=== PATIENT | female | born 1990 | race Caucasian/White ===

== ENCOUNTER 2017-09-07 08:14 | Emergency (ER) | payer BC, OTHER ==
--- NOTE | 2017-09-07 09:20 | EDM.PDOC ---
ED HPI GENERAL MEDICAL PROBLEM - General Chief Complaint: Upper Extremity Injury/Pain Stated Complaint: RIGHT HAND INJURY Time Seen by Provider: 09/07/17 08:44 Source of Information: Reports: Patient History Limitations: Reports: No Limitations - History of Present Illness INITIAL COMMENTS - FREE TEXT/NARRATIVE: The patient states that she punched the back of her Rottweiler's head with a closed right fist last night, to dissuade the dog from attacking another dog. She states that she developed pain and swelling over her right fifth metacarpal bone about 2 hours later. No prior right hand injury. The patient is otherwise uninjured. The patient has been taking Tylenol only for her discomfort. The patient's PCP is Dr. Gould. Right Hand Pain Score (Numeric/FACES): 10 - Related Data Allergies Allergy/AdvReac Type Severity Reaction Status Date / Time No Known Allergies Allergy Verified 09/07/17 08:24 Home Meds: Home Meds . 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 ED EXAM, GENERAL - Physical Exam Exam: See Below Exam Limited By: No Limitations General Appearance: Alert, WD/WN, No Apparent Distress Extremities: Other (There is moderate swelling, primarily over the right fourth and fifth metacarpal and the ulnar aspect of the right hand. There is mild associated ecchymosis. No abrasion. There is tenderness, particularly over the right fifth metacarpal bone. Neurovascular status of the right hand is intact.) Course - Vital Signs Last Recorded V/S: Last Vital Signs Temp 37.3 C 09/07/17 08:20 Pulse 60 09/07/17 08:20 Resp 16 09/07/17 08:20 BP 120/87 09/07/17 08:20 Pulse Ox 99 09/07/17 08:20 - Re-Assessments/Exams Free Text/Narrative Re-Assessment/Exam: 09/07/17 09:19 The patient is tenderness and swelling over her right fifth metacarpal bone. I suspect a boxer fracture. She is requesting an ice pack, but declined an offer for pain medication. 09/07/17 10:52 4-view radiographs of the right hand is read by Dr. Menendez as: 1. No abnormality is appreciated on right hand study. Departure - Departure Time of Disposition: 10:54 Disposition: Home, Self-Care 01 Condition: Good Clinical Impression: Contusion of right hand - Discharge Information Instructions: Contusion, [id number] Referrals: Monica Johnston MD [Primary Care Provider] - Forms: ED Department Discharge Additional Instructions: You were seen in the emergency room for right hand swelling after punching your dog. Workup in the ER included x-rays of your right hand, which returned as normal. You do not have a broken bone. We recommend that you ice and elevate your right hand is much as possible over the next 2 days, to minimize swelling. Take fcmv-cmq-estzkcl ibuprofen as needed for discomfort. You may use your right hand as tolerated. If any other problems, please do not hesitate to return to the ER.
--- NOTE | 2017-09-07 10:32 | CR ---
Right hand: 4 views of the right hand were obtained. Comparison: No prior hand exam. Joint spaces are maintained. No fracture, dislocation or other bony abnormality is seen. Impression: 1. No abnormality is appreciated on right hand study. Diagnostic code #1
== END 2017-09-07 11:09 | disposition home or self-care (01) ==
LOC: JD.ED 08:14
DX: S60.221A Contusion of right hand, initial encounter (principal); W54.1XXA Struck by dog, initial encounter
CPT/HCPCS: 73130-26-RT; 73130-RT; 99283

== ENCOUNTER 2017-09-19 12:57 | Emergency (ER) | payer OTHER ==
[2017-09-19] MEDS ORDERED: Ibuprofen 600 MG Tab PO ONE (13:13)
[2017-09-19] MEDS ORDERED: Acetaminophen/oxyCODONE 325-5 MG Tab PO ONE (13:13)
--- NOTE | 2017-09-19 13:15 | EDM.PDOC ---
ED HPI GENERAL MEDICAL PROBLEM - General Chief Complaint: Upper Extremity Injury/Pain Stated Complaint: RT HAND INJURY Time Seen by Provider: 09/19/17 13:11 Source of Information: Reports: Patient History Limitations: Reports: No Limitations (Past) - History of Present Illness INITIAL COMMENTS - FREE TEXT/NARRATIVE: 27-year-old female presents to the ED after suffering blunt trauma to her right hand. Of note she is right-hand dominant. She states that her dog became disorderly and she gave him a while back to help get them in the vehicle. She states she injured her right hand in the process. Pain along the ulnar aspect of the hand particularly the fifth metacarpal radiating down towards the wrist. Injury occurred within the last half hour. No open wounds. No previous fractures to the same area. Onset: Today Onset Date: 09/19/17 Onset Time: 12:30 Duration: Minutes: Location: Reports: Upper Extremity, Right (Right ulnar aspect of hand and wrist. ) Quality: Reports: Ache, Throbbing Severity: Moderate Improves with: Reports: Rest Worsens with: Reports: Movement Context: Reports: Trauma (Blunt force trauma to the right hand and she struck her dog.). Denies: Activity, Exercise, Lifting, Sick Contact, Other Associated Symptoms: Reports: No Other Symptoms Treatments MECHANOTHERAPIST: Reports: Other (see below) Other Treatments MECHANOTHERAPIST: ice and tylenol last noc Left Arm Pain Score (Numeric/FACES): 4 Right Hand Pain Score (Numeric/FACES): 8 - Related Data Allergies Allergy/AdvReac Type Severity Reaction Status Date / Time No Known Allergies Allergy Verified 09/19/17 13:05 Home Meds: Home Meds . 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) Review of Systems - Review of Systems Review Of Systems: See Below Constitutional: Reports: No Symptoms Eyes: Reports: No Symptoms Ears: Reports: No Symptoms Nose: Reports: No Symptoms Mouth/Throat: Reports: No Symptoms Respiratory: Reports: No Symptoms Cardiovascular: Reports: No Symptoms GI/Abdominal: Reports: No Symptoms Genitourinary: Reports: No Symptoms Musculoskeletal: Reports: No Symptoms Skin: Reports: No Symptoms Neurological: Reports: No Symptoms Psychiatric: Reports: No Symptoms ED EXAM, GENERAL - Physical Exam Exam: See Below Exam Limited By: No Limitations General Appearance: Alert, Moderate Distress, Other (Careful) Eye Exam: Bilateral Eye: Normal Inspection (Periorbital redness from crying) Extremities: Other (Examination limited to her right hand and wrist area. There is swelling midshaft of the right fifth metacarpal. She has limited flexion or ability to make a fist on the right hand. Pain also in the distal radius and carpal bones. Proximal radius and ulna are intact.) Psychiatric: Tearful Skin Exam: Warm, Dry, Intact, No Rash Course - Vital Signs Last Recorded V/S: Last Vital Signs Temp 37.1 C 09/19/17 13:04 Pulse 80 09/19/17 13:04 Resp 18 09/19/17 13:04 BP 125/99 H 09/19/17 13:04 Pulse Ox 100 09/19/17 13:04 - Orders/Labs/Meds Orders: Active Orders 24 hr Category Date Time Status Hand Comp Min 3V Rt [CR] Stat Exams 09/19/17 13:11 Taken Meds: Medications Discontinued Medications Generic Name Dose Route Start Last Admin Trade Name Freq PRN Reason Stop Dose Admin Ibuprofen 600 mg 09/19/17 13:13 09/19/17 13:21 Motrin PO 09/19/17 13:14 600 mg ONETIME ONE Administration Oxycodone/Acetaminophen 1 tab 09/19/17 13:13 09/19/17 13:22 Percocet 325-5 Mg PO 09/19/17 13:14 1 tab ONETIME ONE Administration - Radiology Interpretation Free Text/Narrative:: 27-year-old female presents the ED after blunt force trauma to her right hand after she struck her dog to get him into a vehicle. She has pain and swelling along the fifth metacarpal of her right hand. She is right-hand dominant. Plan x -ray right hand. - Re-Assessments/Exams Free Text/Narrative Re-Assessment/Exam: 09/19/17 14:20 x-ray showed finding completed of her right hand. It shows an old fracture of the head of the right fifth metacarpal bone but there is no new fracture is evident. Treated with Tristian wrap ice and elevation. Motrin 600 mg every 6 hours needed for pain relief. Departure - Departure Time of Disposition: 14:26 Disposition: Home, Self-Care 01 Condition: Fair Clinical Impression: Contusion of hand, right - Discharge Information Instructions: Contusion, [id number] Referrals: Monica Johnston MD [Primary Care Provider] - Forms: ED Department Discharge Additional Instructions: Evaluation the emergent today in regards to blunt trauma to the right hand that occurred this afternoon. Injury to the lateral aspect of the right fifth metacarpal bone or hand bone. Swelling evident. X-rays however show no fractures that are new. There possibly is an old fracture of the head of the right fifth metatarsal head that would be several years old. It is well-healed. Actions are evident. Treatment is time to heal. Tristian wrap placed. Motrin 600 mg every 6 hours needed for pain relief. Ice pack to the area 20 minutes out of every 2 hours this afternoon in every 3 hours tomorrow. Expect improvement over the next 3-5 days. - My Orders Last 24 Hours: My Active Orders 09/19/17 13:11 Hand Comp Min 3V Rt [CR] Stat - Assessment/Plan Last 24 Hours: My Active Orders 09/19/17 13:11 Hand Comp Min 3V Rt [CR] Stat
--- NOTE | 2017-09-20 08:23 | CR ---
Right hand: Three views of the right hand were obtained. Comparison: Previous right hand study of 09/07/17. Fracture is felt to be present within the distal right fifth metacarpal. Alignment remains anatomic. No additional fracture or other bony abnormality is seen. Impression: 1. Findings suspicious for nondisplaced distal right fifth metacarpal fracture which is an interval change from previous exam. Diagnostic code #3
== END 2017-09-19 14:35 | disposition home or self-care (01) ==
LOC: JD.ED 12:57
DX: S60.221A Contusion of right hand, initial encounter (principal); F32.9 Major depressive disorder, single episode, unspecified; W54.1XXA Struck by dog, initial encounter
CPT/HCPCS: 73130; 99283; A9270

== ENCOUNTER 2018-06-10 16:06 | Emergency (ER) | payer BC, OTHER ==
--- NOTE | 2018-06-10 16:55 | EDM.PDOC ---
ED HPI GENERAL MEDICAL PROBLEM - General Chief Complaint: Respiratory Problem Stated Complaint: BODY ACHES Time Seen by Provider: 06/10/18 16:44 Source of Information: Reports: Patient, RN Notes Reviewed, Significant Other ( Fiance) History Limitations: Reports: No Limitations - History of Present Illness INITIAL COMMENTS - FREE TEXT/NARRATIVE: The patient states that she has had a cough productive of greenish sputum, sore throat, nausea with vomiting, generalized myalgias and arthralgias, and a subjective fever, since 06/08/2018. She states that she has been taking Tylenol. No similarly ill contacts at home or work. The patient's PCP is Dr. Gould. The patient did not receive an influenza vaccine this season. Generalized Pain Score (Numeric/FACES): 8 - Related Data Allergies Allergy/AdvReac Type Severity Reaction Status Date / Time latex Allergy Swelling Verified 06/10/18 16:37 Home Meds: Home Meds Antidepressant. 06/10/18 [History] Past Medical History HEENT History: Reports: Impaired Vision Psychiatric History: Reports: Anxiety, Depression Social & Family History - Family History Family Medical History: Noncontributory - Tobacco Use Smoking Status *Q: Never Smoker - Caffeine Use Caffeine Use: Reports: Energy Drinks - Alcohol Use Alcohol Use History: Yes Alcohol Use Frequency: Socially - Recreational Drug Use Recreational Drug Use: Yes Drug Use in Last 12 Months: Yes Recreational Drug Type: Reports: Marijuana/Hashish (smokes weekly) - Living Situation & Occupation Living situation: Reports: Single, with Significant Other (Fiance), with Family (3 kids) 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 ED EXAM, GENERAL - Physical Exam Exam: See Below Exam Limited By: No Limitations General Appearance: Alert, WD/WN, No Apparent Distress Eye Exam: Bilateral Eye: EOMI, Normal Inspection Ears: Normal External Exam, Normal Canal, Hearing Grossly Normal, Normal TMs Nose: Normal Inspection, Other (Bilateral nasal mucosa edema) Throat/Mouth: Normal Inspection, Normal Lips, Normal Teeth, Normal Gums, Normal Oropharynx, Normal Voice, No Airway Compromise Head: Atraumatic, Normocephalic Neck: Normal Inspection, Supple, Non-Tender, Full Range of Motion. No: Lymphadenopathy (L), Lymphadenopathy (R) Respiratory/Chest: No Respiratory Distress, Lungs Clear, Normal Breath Sounds, No Accessory Muscle Use. No: Decreased Breath Sounds, Crackles, Rhonchi, Wheezing, Prolonged Expiration Cardiovascular: Normal Peripheral Pulses, Regular Rate, Rhythm, No Edema, No Gallop, No JVD, No Murmur, No Rub Peripheral Pulses: 4+: Radial (L), Radial (R) GI/Abdominal: Normal Bowel Sounds, Soft, Non-Tender, No Organomegaly, No Distention, No Abnormal Bruit, No Mass (Female) Exam: Deferred Rectal (Female) Exam: Deferred Back Exam: Normal Inspection, Full Range of Motion, NT Extremities: Normal Inspection, Normal Range of Motion, No Pedal Edema, Normal Capillary Refill Neurological: Alert, Oriented, Normal Cognition, No Motor/Sensory Deficits Psychiatric: Normal Affect Skin Exam: Warm, Dry, Intact, Normal Color, No Rash Course - Vital Signs Last Recorded V/S: Last Vital Signs Temp 37.4 C 06/10/18 16:38 Pulse 58 L 06/10/18 16:38 Resp 18 06/10/18 16:38 BP 105/70 06/10/18 16:38 Pulse Ox 99 06/10/18 16:38 - Re-Assessments/Exams Free Text/Narrative Re-Assessment/Exam: 06/10/18 16:55 The patient may have influenza. I have ordered an influenza swab. As the patient does not have a fever, her oxygen saturation is 99% on room air, and her lungs are clear to auscultation bilaterally, I do not see an indication for blood work or a chest x-ray. 06/10/18 18:09 Test results discussed with the patient and her fianc. The patient's influenza swab has returned positive for influenza type A. unfortunately, the patient has been symptomatic for 2 full days, and therefore Tamiflu would not likely be of any benefit to her. This was explained to the patient, who seems to understand. I am recommending that the patient take either zdlv-hty-qjklqcm ibuprofen or evne-oad-ajgmwuh Tylenol as needed for her aches and pains, but I advised against any ddgz-vfr-zlgbohx cough or cold remedies, as they have not been shown to be of any benefit. The patient declined an offer for a prescription for Zofran. I will write a note for the patient through 06/14/2018, at which time I would like her to follow-up with her PCP. Despite the patient having influenza, I recommended that she receive the influenza vaccine, which may help to prevent infection with other strains of influenza this season. Departure - Departure Time of Disposition: 18:11 Disposition: Home, Self-Care 01 Condition: Fair Clinical Impression: Influenza A - Discharge Information *PRESCRIPTION DRUG MONITORING PROGRAM REVIEWED*: Not Applicable *COPY OF PRESCRIPTION DRUG MONITORING REPORT IN PATIENT FLOWER: Not Applicable Instructions: Influenza, Adult, [id number]-[id number] Referrals: Monica Johnston MD [Primary Care Provider] - Forms: ED Department Discharge, ED Return to Work/School Form Additional Instructions: You were seen in the emergency room for a cough, sore throat, nausea, vomiting, muscle and joint aches, and possible fever. Workup in the ER included an influenza swab, which returned positive for influenza type A. This means that you have influenza. As discussed, since her symptoms have been going on for the past 2 days, the anti-influenza medicine Tamiflu will not likely be of any benefit to you. We recommend that you take EITHER yhpw-tyl-bhvlxjj Tylenol or hxfn-cax-qbdoklc ibuprofen as needed for aches and pains. Do not alternate Tylenol and ibuprofen. You will probably find that ibuprofen works better and lasts longer. As discussed, we do not recommend that you take any qntz-hbr-iicoxke cough or cold remedies, as they have been shown to be of no benefit, but do have side effects, such as a stomachache. A note for work has been provided for you through 06/14/2018. Follow-up with your PCP, Dr. Gould, on or before that date, for a longer work note. You will be contagious as long as you're symptomatic, which will likely take another 10 days. As discussed, despite your having influenza, we recommend that you receive the influenza vaccine, to help prevent infection with others strains of influenza. If any other problems, please do not hesitate to return to the ER.
== END 2018-06-10 18:20 | disposition home or self-care (01) ==
LOC: JD.ED 16:06
DX: J10.1 Influenza due to other identified influenza virus with other respiratory manifestations (principal); Z91.040 Latex allergy status
CPT/HCPCS: 87804; 99282; 99283